=== PATIENT | female | born 1940 | race Caucasian/White ===

== ENCOUNTER 2016-09-28 15:15 | Outpatient (RCR) | payer MEDICARE ==
[~2016-09-28 15:15] MED LIST: ASPI325T6 PO; D3-5050000 IU PO; DALIRESP500 MCG PO; FLONASE NASAL S16 GM NS; FOLIC ACID0.4 MG PO; FOSAMAX 70MG TA70 MG PO; Flonase Nasal NS; GI COCKTAIL SUSP1 M1 PO; INHALERS; IPRATROPIUM BROM3 M1 IH; ISOPTIN SR180 M1 PO; MAGNESIUM500 MG PO; MULTAQ400 MG PO; NITROSTAT0.4 MG/TAB SL; NORCO 325 MG-7.1 TAB PO; NYSTATIN OR100 MU/ML PO; OSCAL 500 TAB500 MG PO; PREMARIN VAG42.5 GM VG; PRIL40 PO; PULMICORT0.5 MG/2 M IH; QVAR0.08 MG/AC IH; ROXICODONE 55 MG/TAB PO; RT SPIRIVA18 MCG IH; SEREVENT IH; SINGULAIR 110 MG/TAB; SYNTHROID0.088 MG/T PO; SYNTHROID0.2 MG/TAB PO; TAMIFLU 75MG75 MG PO; THEO-DUR 1100 MG/TAB; THEO-DUR 3300 MG/TAB PO; ULTRAM 50MG TAB50 MG PO; VENTOLIN0.09 MG IH; VERAPAMIL 440 MG/TAB; VERAPAMIL 440 MG/TAB PO; VERELAN120 MG PO; XARELTO15 MG PO; XARELTO20 MG PO; ZOFRAN 4MG T4 MG/TAB PO; [UNRECOGNIZED DRUG - REMARK]
== END 2016-10-05 | disposition home or self-care (01) ==
LOC: MKS.ESL.PT
DX: M62.81 Muscle weakness (generalized) (principal)
CPT/HCPCS: G8990-GP; G8991-GP

== ENCOUNTER → 2017-01-10 | Outpatient (RCR) | payer MEDICARE | LOC: MKS.ESL.PT | DX: M62.81 Muscle weakness (generalized) (principal); Z99.81 Dependence on supplemental oxygen | CPT/HCPCS: G8990-GP; G8991-GP ==

== ENCOUNTER 2017-04-11 10:45 | Outpatient (RCR) | payer MEDICARE | END 2017-04-12 11:20 | LOC: MKS.ESL.PT 10:45 | DX: R53.1 Weakness (principal) | CPT/HCPCS: G8990-GP; G8991-GP; G8992-GP ==

== ENCOUNTER 2017-09-25 09:53 | Emergency (ER) | payer MEDICARE ==
[~2017-09-25] VITALS: Ht 162.6 cm; Wt 43.6 kg
[2017-09-25 10:10] VITALS: TEMP 97.6
[2017-09-25 10:40] LABS: BASO # 0.1 (0.0-0.2); BASO % 0.6 % (0.0-2.0); EOS % 0.4 % (0-4.0); GRAN % 77.6 % (42.2-75.2); HEMATOCRIT 32.6 % (37.0-47.0); HEMOGLOBIN 9.6 g/dl (12.5-16.0); LYMPH # 1.5 (1.2-3.4); LYMPH % 14.5 % (20.0-51.0); MEAN CELL VOLUME 83 fl (80.0-100.0); MEAN CORPUSCULAR HEMOGLOBIN 24 pg (27.0-31.0); MEAN CORPUSCULAR HGB CONC 29 g/dl (33.0-37.0); MEAN PLATELET VOLUME 8.1 fl (7.4-10.4); MONO # 0.7 (0.1-0.6); MONO % 6.5 % (1.7-9.3); PLATELET COUNT 575 K/mm3 (130-400); RED BLOOD COUNT 3.94 M/mm3 (4.10-5.30); REDCELL DISTRIBUTION WIDTH-CV 15.6 % (11.5-14.5)
[2017-09-25 10:52] LABS: INR 1.9 (0.8-3.0)
[2017-09-25 11:04] LABS: ALBUMIN 4.3 gm/dL (3.5-5.0); BILIRUBIN,TOTAL 0.3 mg/dL (0.0-1.0); CREATININE, serum 0.42 mg/dL (0.52-1.25); POTASSIUM 3.2 mmol/L (3.4-5.0)
[2017-09-25] MEDS ORDERED: MEDROL 4MG DOSPA4 MG PO (12:45)
[2017-09-25] MEDS ORDERED: ZITHROMAX 250M250 MG PO (12:45)
[2017-09-25] MEDS ORDERED: K-DUR 10 MEQ T10 MEQ PO (12:45)
[2017-09-25 13:46] VITALS: BP 162/68; PULSE 90
== END 2017-09-25 13:56 | disposition home or self-care (01) ==
LOC: COL.ER 09:53
PROVIDERS: Emergency Medicine
DX: J44.1 Chronic obstructive pulmonary disease with (acute) exacerbation (principal); I48.91 Unspecified atrial fibrillation; Z87.891 Personal history of nicotine dependence
CPT/HCPCS: J7512

== ENCOUNTER 2017-11-20 05:44 | Emergency (ER) | payer MEDICARE ==
[~2017-11-20] VITALS: Ht 160 cm; Wt 42.9 kg
[~2017-11-20 05:44] MED LIST changes: +CALAN120 MG PO; +K-DUR 10 MEQ T10 MEQ PO; +MEDROL 4MG DOSPA4 MG PO; +ZITHROMAX 250M250 MG PO
[2017-11-20 05:46] VITALS: TEMP 96.9
[2017-11-20 06:56] LABS: BASO # 0.1 (0.0-0.2); BASO % 0.6 % (0.0-2.0); EOS # 0.2 (0.0-0.7); EOS % 1.7 % (0-4.0); GRAN # 6.6 (1.4-6.5); GRAN % 71.2 % (42.2-75.2); LYMPH # 1.6 (1.2-3.4); LYMPH % 17.2 % (20.0-51.0); MEAN CELL VOLUME 78 fl (80.0-100.0); MEAN CORPUSCULAR HGB CONC 28 g/dl (33.0-37.0); MEAN PLATELET VOLUME 7.9 fl (7.4-10.4); MONO # 0.9 (0.1-0.6); MONO % 9.1 % (1.7-9.3); PLATELET COUNT 512 K/mm3 (130-400); RED BLOOD COUNT 3.78 M/mm3 (4.10-5.30)
[2017-11-20 06:58] LABS: HEMATOCRIT 29.4 % (37.0-47.0); HEMOGLOBIN 8.3 g/dl (12.5-16.0); MEAN CORPUSCULAR HEMOGLOBIN 22 pg (27.0-31.0)
[2017-11-20] MEDS ORDERED: XOPENEX 1.1.25 MG/3 IH (07:00)
[2017-11-20 07:01] LABS: INR 2.2 (0.8-3.0)
[2017-11-20] MEDS ORDERED: BROVANA15 MCG/2 M IH (07:02)
[2017-11-20] MEDS ORDERED: PULMICORT0.5 MG/2 M IH (07:02)
[2017-11-20] MEDS ORDERED: VITAMIN D 400400 IU PO (07:05)
[2017-11-20 07:06] LABS: CALCIUM 9.7 mg/dL (8.4-10.2); CREATININE, serum 0.43 mg/dL (0.52-1.25); POTASSIUM 3.3 mmol/L (3.4-5.0)
[2017-11-20] MEDS ORDERED: THEO-24 30300 MG/CAP PO (07:06)
[2017-11-20] MEDS ORDERED: VITAMIN B COMPL1 SGL PO (07:07)
[2017-11-20] MEDS ORDERED: ALBUTEROL0.83 MG/ML IH (07:07)
[2017-11-20 07:47] VITALS: BP 122/72; PULSE 86
[2017-11-20] MEDS ORDERED: TRIPLE ANTIBIOT1 O19 TP (08:31)
== END 2017-11-20 07:45 | disposition home or self-care (01) ==
LOC: COL.ER 05:44
PROVIDERS: Emergency Medicine
DX: R04.0 Epistaxis (principal); I48.91 Unspecified atrial fibrillation; J44.9 Chronic obstructive pulmonary disease, unspecified; Z79.01 Long term (current) use of anticoagulants; Z79.51 Long term (current) use of inhaled steroids

== ENCOUNTER → 2018-01-30 | Outpatient (CLI) | payer MEDICARE ==
[~2018-01-30] MED LIST changes: +ALBUTEROL0.83 MG/ML IH; +BROVANA15 MCG/2 M IH; +THEO-24 30300 MG/CAP PO; +TRIPLE ANTIBIOT1 O19 TP; +VITAMIN B COMPL1 SGL PO; +VITAMIN D 400400 IU PO; +XOPENEX 1.1.25 MG/3 IH
[2018-01-30 09:43] LABS: ARTERIAL BLD GAS TCO2 CT 24.3; ARTERIAL BLOOD GAS BASE EXCESS -0.2 (-2-2); ARTERIAL BLOOD GAS HCO3 23.3 meq/L (22-26); ARTERIAL BLOOD GAS PCO2 33.3 mmHg (35-45); ARTERIAL BLOOD GAS PO2 107.2 mmHg (80-100); ARTERIAL BLOOD GAS pH 7.46 (7.35-7.45)
== END ==
LOC: COL.PUL 09:03
PROVIDERS: Internal Medicine Pulmonary Disease
DX: R09.02 Hypoxemia (principal)

== ENCOUNTER 2018-03-06 11:56 | Inpatient (IN) | payer MEDICARE ==
[~2018-03-06] VITALS: Ht 162.6 cm; Wt 39.8 kg
[2018-03-06] VITALS (215 sets, daily range): BP systolic 113–120; BP diastolic 67–80; PULSE 115–119; TEMP 98–98.3; O2SAT 91–100
[2018-03-06 12:43] LABS: BASO # 0.1 (0.0-0.2); BASO % 0.8 % (0.0-2.0); EOS % 0.3 % (0-4.0); GRAN % 82.1 % (42.2-75.2); HEMATOCRIT 39.4 % (37.0-47.0); HEMOGLOBIN 11.7 g/dl (12.5-16.0); LYMPH # 1.4 (1.2-3.4); LYMPH % 9.9 % (20.0-51.0); MEAN CELL VOLUME 79 fl (80.0-100.0); MEAN CORPUSCULAR HEMOGLOBIN 24 pg (27.0-31.0); MEAN CORPUSCULAR HGB CONC 30 g/dl (33.0-37.0); MEAN PLATELET VOLUME 8.6 fl (7.4-10.4); MONO # 0.9 (0.1-0.6); MONO % 6.5 % (1.7-9.3); PLATELET COUNT 532 K/mm3 (130-400); RED BLOOD COUNT 4.97 M/mm3 (4.10-5.30); REDCELL DISTRIBUTION WIDTH-CV 28.4 % (11.5-14.5)
[2018-03-06 12:49] LABS: PROTHROMBIN TIME 10.9 SECONDS (9.7-12.8)
[2018-03-06 12:56] LABS: ALBUMIN 4.2 gm/dL (3.5-5.0); BILIRUBIN,TOTAL 0.4 mg/dL (0.0-1.0); CALCIUM 10.2 mg/dL (8.4-10.2); CREATININE, serum 0.52 mg/dL (0.52-1.25); POTASSIUM 3.9 mmol/L (3.4-5.0); TOTAL PROTEIN 7.2 gm/dL (6.4-8.2)
[2018-03-06 13:07] LABS: COLLECTION METHOD CATHETER
[2018-03-06 13:08] LABS: TROPONIN-I 0.019 ng/mL (0.000-0.034)
[2018-03-06 13:24] LABS: MUCOUS Present /lpf; PH 5 (5-8); SQUAMOUS EPITHELIAL None Seen /hpf; URINE APPEARANCE Clear; URINE BACTERIA None Seen /hpf; URINE BILIRUBIN Negative (NEGATIVE); URINE BLOOD Negative (NEGATIVE); URINE COLOR Yellow; URINE GLUCOSE Negative (NEGATIVE); URINE KETONE 1+ (NEGATIVE); URINE LEUKOCYTE ESTERASE Negative (NEGATIVE); URINE NITRATE Negative (NEGATIVE); URINE PROTEIN(semi-quant) 2+ (NEGATIVE); URINE RBC 0-2 /hpf; URINE UROBILINOGEN Negative (NEGATIVE)
[2018-03-06] MEDS ORDERED: RT ALBUTER2.5 MG/0.5 IH (15:17)
[2018-03-06] MEDS ORDERED: FERROUS SU325 MG/TAB PO (15:17)
[2018-03-06] MEDS ORDERED: PROTONIX 40MG T40 MG PO (15:18)
[2018-03-06] MEDS ORDERED: MAG-OX 400400 MG/TAB PO (15:18)
[2018-03-06] MEDS ORDERED: K-TAB10 (15:19)
[2018-03-06] MEDS ORDERED: MIRALAX PA17 GM/Dose PO (15:19)
[2018-03-06] MEDS ORDERED: B COMPLEX #11 TAB (15:20)
[2018-03-06] MEDS ORDERED: BIOTIN 0.3 MG-21 TAB (15:21)
[2018-03-06] MEDS ORDERED: MERIBIN5 MG PO (15:21)
[2018-03-06] MEDS ORDERED: PERIDEX (CHLOR480 ML MM (15:24)
[2018-03-06] MEDS ORDERED: BREO IH (15:26)
[2018-03-06] MEDS ORDERED: THEO-DUR 3300 MG/TAB PO (15:27)
[2018-03-06] MEDS ORDERED: FOLIC ACID0.4 MG PO (15:27)
[2018-03-06] MEDS ORDERED: VERAPAMIL 440 MG/TAB PO (15:28)
[2018-03-06] MEDS ORDERED: QVAR REDIHALE10.6 G1 IH (15:29)
[2018-03-06] MEDS ORDERED: VITAMIN D3400 I1 PO (15:29)
[2018-03-06] MEDS ORDERED: 00186-0370-20 IH (15:30)
[2018-03-06] MEDS ORDERED: LEVOXYL0.088 MG PO (15:31)
[2018-03-06 15:52] LABS: THEOPHYLLINE 33.6 ug/mL (10.0-20.0)
[2018-03-06 16:18] LABS: TSH w REFLEX 35.5 uIU/mL (0.465-4.680)
[2018-03-07] VITALS (645 sets, daily range): BP systolic 107–119; BP diastolic 60–72; PULSE 60–114; TEMP 97.8–98.6; O2SAT 59–100
[2018-03-07 06:33] LABS: BASO # 0.1 (0.0-0.2); BASO % 0.8 % (0.0-2.0); EOS # 0.2 (0.0-0.7); EOS % 1.7 % (0-4.0); GRAN # 8.3 (1.4-6.5); GRAN % 77.4 % (42.2-75.2); HEMATOCRIT 37.2 % (37.0-47.0); LYMPH # 1.5 (1.2-3.4); LYMPH % 13.6 % (20.0-51.0); MEAN CELL VOLUME 81 fl (80.0-100.0); MEAN CORPUSCULAR HEMOGLOBIN 24 pg (27.0-31.0); MEAN CORPUSCULAR HGB CONC 30 g/dl (33.0-37.0); MEAN PLATELET VOLUME 8.3 fl (7.4-10.4); MONO # 0.7 (0.1-0.6); MONO % 6.1 % (1.7-9.3); PLATELET COUNT 452 K/mm3 (130-400); RED BLOOD COUNT 4.59 M/mm3 (4.10-5.30); REDCELL DISTRIBUTION WIDTH-CV 28.9 % (11.5-14.5)
[2018-03-07 06:43] LABS: CALCIUM 9.3 mg/dL (8.4-10.2); CREATININE, serum 0.44 mg/dL (0.52-1.25); POTASSIUM 3.7 mmol/L (3.4-5.0)
[2018-03-08] VITALS (7 sets, daily range): BP systolic 96–142; BP diastolic 41–91; PULSE 63–85; TEMP 97.4–98.5
[2018-03-08 07:08] LABS: BASO # 0.1 (0.0-0.2); EOS # 0.3 (0.0-0.7); EOS % 3.6 % (0-4.0); GRAN # 6.8 (1.4-6.5); GRAN % 74.7 % (42.2-75.2); HEMOGLOBIN 10.2 g/dl (12.5-16.0); LYMPH # 1.3 (1.2-3.4); LYMPH % 14.6 % (20.0-51.0); MEAN CELL VOLUME 85 fl (80.0-100.0); MEAN CORPUSCULAR HEMOGLOBIN 24 pg (27.0-31.0); MEAN CORPUSCULAR HGB CONC 28 g/dl (33.0-37.0); MEAN PLATELET VOLUME 8.7 fl (7.4-10.4); MONO # 0.5 (0.1-0.6); MONO % 5.8 % (1.7-9.3); PLATELET COUNT 430 K/mm3 (130-400); RED BLOOD COUNT 4.27 M/mm3 (4.10-5.30); REDCELL DISTRIBUTION WIDTH-CV 29.6 % (11.5-14.5)
[2018-03-08 07:10] LABS: CALCIUM 9.3 mg/dL (8.4-10.2); CREATININE, serum 0.46 mg/dL (0.52-1.25); MAGNESIUM 1.6 mg/dL (1.6-2.3)
[2018-03-08 07:16] LABS: HEMATOCRIT 36.1 % (37.0-47.0)
[2018-03-09 05:44] VITALS: BP 127/48; PULSE 77; TEMP 98.8
[2018-03-09 07:22] LABS: BASO # 0.1 (0.0-0.2); BASO % 0.6 % (0.0-2.0); EOS # 0.1 (0.0-0.7); EOS % 0.9 % (0-4.0); GRAN # 8.5 (1.4-6.5); GRAN % 80.5 % (42.2-75.2); LYMPH # 1.3 (1.2-3.4); LYMPH % 11.8 % (20.0-51.0); MEAN CELL VOLUME 85 fl (80.0-100.0); MEAN CORPUSCULAR HGB CONC 28 g/dl (33.0-37.0); MEAN PLATELET VOLUME 8.5 fl (7.4-10.4); MONO # 0.6 (0.1-0.6); PLATELET COUNT 378 K/mm3 (130-400); RED BLOOD COUNT 3.93 M/mm3 (4.10-5.30); REDCELL DISTRIBUTION WIDTH-CV 29.3 % (11.5-14.5)
[2018-03-09 07:26] LABS: HEMATOCRIT 33.4 % (37.0-47.0); HEMOGLOBIN 9.4 g/dl (12.5-16.0); MEAN CORPUSCULAR HEMOGLOBIN 24 pg (27.0-31.0)
[2018-03-09 07:33] LABS: ANION GAP 8 mmol/L (7-16); BLOOD UREA NITROGEN 15 mg/dL (7-17); CALCIUM 9.1 mg/dL (8.4-10.2); CARBON DIOXIDE 31 mmol/L (22-30); CHLORIDE 100 mmol/L (98-107); CREATININE, serum 0.43 mg/dL (0.52-1.25); GLUCOSE 97 mg/dL (74-106); MAGNESIUM 1.4 mg/dL (1.6-2.3); POTASSIUM 3.9 mmol/L (3.4-5.0); SODIUM 138 mmol/L (137-145)
[2018-03-09 08:21] VITALS: BP 95/51; PULSE 65; TEMP 96.9
[2018-03-09] MEDS ORDERED: ASPIRIN E.C. 8181 MG PO (08:51)
[2018-03-09] MEDS ORDERED: BETAPACE 80MG80 MG PO (08:51)
[2018-03-09 08:53] LABS: THEOPHYLLINE < 1.0 ug/mL (10.0-20.0)
[2018-03-09] MEDS ORDERED: LEVOXYL0.1 MG PO (08:54)
[2018-03-09] MEDS ORDERED: THEO-DUR 1100 MG/TAB PO (09:02)
[2018-03-09] MEDS ORDERED: ANTACID500 M1 PO (09:25)
[2018-03-09] MEDS ORDERED: TYLENOL 500MG500 MG PO (09:26)
[2018-03-09 09:53] VITALS: BP 95/51; PULSE 65; TEMP 96.9
[2018-03-09 11:50] VITALS: BP 86/43; PULSE 60; TEMP 98
[2018-03-09 12:38] VITALS: BP 85/52
[2018-03-09 12:43] VITALS: BP 90/48
== END 2018-03-09 03:10 | DRG 308 ==
LOC: COL.ER 11:56 → ICU 15:58 → MEDICAL 03-07 19:20
PROVIDERS: Emergency Medicine; Nurse Practitioner; Physician Assistant
DX: I48.0 Paroxysmal atrial fibrillation (principal); E43 Unspecified severe protein-calorie malnutrition; Z68.1 Body mass index [BMI] 19.9 or less, adult; J44.9 Chronic obstructive pulmonary disease, unspecified; I10 Essential (primary) hypertension; Z87.891 Personal history of nicotine dependence; D50.9 Iron deficiency anemia, unspecified
CPT/HCPCS: 99222-AI; 99232-AI; 99239; J2405; J3475; J7030

== ENCOUNTER → 2018-03-13 | Outpatient (REF) ==
[~2018-03-13] MED LIST changes: +00186-0370-20 IH; +ANTACID500 M1 PO; +ASPIRIN E.C. 8181 MG PO; +B COMPLEX #11 TAB; +BETAPACE 80MG80 MG PO; +BIOTIN 0.3 MG-21 TAB; +BREO IH; +FERROUS SU325 MG/TAB PO; +K-TAB10; +LEVOXYL0.088 MG PO; +LEVOXYL0.1 MG PO; +MAG-OX 400400 MG/TAB PO; +MERIBIN5 MG PO; +MIRALAX PA17 GM/Dose PO; +PERIDEX (CHLOR480 ML MM; +PROTONIX 40MG T40 MG PO; +QVAR REDIHALE10.6 G1 IH; +RT ALBUTER2.5 MG/0.5 IH; +THEO-DUR 1100 MG/TAB PO; +TYLENOL 500MG500 MG PO; +VITAMIN D3400 I1 PO
[2018-03-13 10:03] LABS: BASO # 0.1 (0.0-0.2); BASO % 1.2 % (0.0-2.0); EOS # 0.2 (0.0-0.7); EOS % 2.4 % (0-4.0); GRAN # 5.5 (1.4-6.5); GRAN % 73.1 % (42.2-75.2); HEMATOCRIT 42.1 % (37.0-47.0); HEMOGLOBIN 11.7 g/dl (12.5-16.0); LYMPH # 1.3 (1.2-3.4); LYMPH % 17.2 % (20.0-51.0); MEAN CELL VOLUME 89 fl (80.0-100.0); MEAN CORPUSCULAR HEMOGLOBIN 25 pg (27.0-31.0); MEAN CORPUSCULAR HGB CONC 28 g/dl (33.0-37.0); MEAN PLATELET VOLUME 9.2 fl (7.4-10.4); MONO # 0.5 (0.1-0.6); PLATELET COUNT 553 K/mm3 (130-400); RED BLOOD COUNT 4.75 M/mm3 (4.10-5.30); REDCELL DISTRIBUTION WIDTH-CV 29.9 % (11.5-14.5)
[2018-03-13 10:19] LABS: CHOLESTEROL RISK RATIO 3.9
[2018-03-13 10:51] LABS: THYROID STIMULATING HORMONE 9.76 uIU/mL (0.465-4.680)
== END ==
LOC: ZLAB.STJ 09:51
PROVIDERS: Internal Medicine
DX: D50.9 Iron deficiency anemia, unspecified (principal); E03.9 Hypothyroidism, unspecified; E43 Unspecified severe protein-calorie malnutrition

== ENCOUNTER 2018-04-15 10:20 | Observation (INO) | payer MEDICARE ==
[~2018-04-15] VITALS: Ht 162.6 cm; Wt 39.0 kg
[2018-04-15 11:11] LABS: ARTERIAL BLD GAS O2 SATURATION 97.8 % (92-100); ARTERIAL BLD GAS TCO2 CT 35.5; ARTERIAL BLOOD GAS BASE EXCESS 5.1 (-2-2); ARTERIAL BLOOD GAS HCO3 33.4 meq/L (22-26); ARTERIAL BLOOD GAS PCO2 68.5 mmHg (35-45); ARTERIAL BLOOD GAS PO2 117.8 mmHg (80-100); ARTERIAL BLOOD GAS pH 7.31 (7.35-7.45)
[2018-04-15 11:45] LABS: BASO # 0.1 (0.0-0.2); BASO % 0.7 % (0.0-2.0); EOS # 0.3 (0.0-0.7); EOS % 2.3 % (0-4.0); GRAN # 7.4 (1.4-6.5); GRAN % 65.8 % (42.2-75.2); HEMATOCRIT 40.3 % (37.0-47.0); HEMOGLOBIN 12.1 g/dl (12.5-16.0); LYMPH # 2.5 (1.2-3.4); LYMPH % 22.2 % (20.0-51.0); MEAN CELL VOLUME 92 fl (80.0-100.0); MEAN CORPUSCULAR HEMOGLOBIN 28 pg (27.0-31.0); MEAN CORPUSCULAR HGB CONC 30 g/dl (33.0-37.0); MEAN PLATELET VOLUME 9.5 fl (7.4-10.4); MONO % 8.6 % (1.7-9.3); PLATELET COUNT 336 K/mm3 (130-400); RED BLOOD COUNT 4.38 M/mm3 (4.10-5.30)
[2018-04-15 11:50] LABS: ALANINE AMINOTRANSFERASE 26 U/L (9-52); ALKALINE PHOSPHATASE 65 U/L (50-136); ANION GAP 1 mmol/L (7-16); AST,SGOT 15 U/L (15-37); BILIRUBIN,TOTAL 0.3 mg/dL (0.0-1.0); BLOOD UREA NITROGEN 13 mg/dL (7-17); CALCIUM 9.8 mg/dL (8.4-10.2); CARBON DIOXIDE 36 mmol/L (22-30); CHLORIDE 103 mmol/L (98-107); GLUCOSE 93 mg/dL (74-106); POTASSIUM 3.9 mmol/L (3.4-5.0); SODIUM 141 mmol/L (137-145); TOTAL PROTEIN 7.3 gm/dL (6.4-8.2)
[2018-04-15 12:01] LABS: TROPONIN-I < 0.012 ng/mL (0.000-0.034)
[2018-04-15] MEDS ORDERED: THEO-24100 MG PO (12:03)
[2018-04-15] MEDS ORDERED: MIRALAX PA17 GM/Dose PO (12:22)
[2018-04-15] MEDS ORDERED: MAG-OX 400400 MG/TAB PO (12:24)
[2018-04-15] MEDS ORDERED: RT SPIRIVA18 MCG IH (12:27)
[2018-04-15] MEDS ORDERED: ENSURE PLUS 24240 ML (12:28)
[2018-04-15 15:35] VITALS: BP 126/76; PULSE 77; TEMP 97.6
[2018-04-15 15:46] LABS: TSH w REFLEX 0.338 uIU/mL (0.465-4.680)
[2018-04-15 19:42] VITALS: BP 107/67; PULSE 68; TEMP 97.4
[2018-04-16 04:35] VITALS: BP 111/54; PULSE 67; TEMP 98.4
[2018-04-16 05:42] LABS: ARTERIAL BLD GAS O2 SATURATION 96.4 % (92-100); ARTERIAL BLD GAS TCO2 CT 30.7; ARTERIAL BLOOD GAS BASE EXCESS 2.6 (-2-2); ARTERIAL BLOOD GAS HCO3 29.1 meq/L (22-26); ARTERIAL BLOOD GAS PO2 93.5 mmHg (80-100); ARTERIAL BLOOD GAS pH 7.36 (7.35-7.45)
[2018-04-16 07:48] LABS: BASO % 0.1 % (0.0-2.0); GRAN # 10.4 (1.4-6.5); GRAN % 89.2 % (42.2-75.2); HEMOGLOBIN 10.8 g/dl (12.5-16.0); LYMPH # 1.1 (1.2-3.4); MEAN CELL VOLUME 92 fl (80.0-100.0); MEAN CORPUSCULAR HEMOGLOBIN 28 pg (27.0-31.0); MEAN CORPUSCULAR HGB CONC 30 g/dl (33.0-37.0); MEAN PLATELET VOLUME 8.8 fl (7.4-10.4); MONO # 0.2 (0.1-0.6); MONO % 1.4 % (1.7-9.3); PLATELET COUNT 311 K/mm3 (130-400); RED BLOOD COUNT 3.92 M/mm3 (4.10-5.30)
[2018-04-16 07:58] LABS: CALCIUM 9.6 mg/dL (8.4-10.2); CREATININE, serum 0.33 mg/dL (0.52-1.25); POTASSIUM 4.3 mmol/L (3.4-5.0)
[2018-04-16 08:10] VITALS: BP 119/53; PULSE 81; TEMP 98.2
[2018-04-16] MEDS ORDERED: PREDNISONE20 MG PO (11:28)
[2018-04-16 11:56] VITALS: BP 116/55; PULSE 73; TEMP 98
== END 2018-04-16 14:44 | disposition home or self-care (01) ==
LOC: COL.ER 10:20 → MEDICAL 12:12
PROVIDERS: Emergency Medicine; Physician Assistant
DX: J44.1 Chronic obstructive pulmonary disease with (acute) exacerbation (principal); E87.4 Mixed disorder of acid-base balance; I48.91 Unspecified atrial fibrillation; E43 Unspecified severe protein-calorie malnutrition; R53.81 Other malaise; I10 Essential (primary) hypertension; E03.9 Hypothyroidism, unspecified; Z79.82 Long term (current) use of aspirin; Z79.899 Other long term (current) drug therapy; Z83.6 Family history of other diseases of the respiratory system
CPT/HCPCS: 99239; G0008; G8978-GP; G8979-GP; G8987-GO; G8988-GO; J1650; J2930; J7030; J7050; Q9967